=== PATIENT | female | born 1985 | race Caucasian/White ===

== ENCOUNTER 2019-02-04 09:59 | Emergency (ER) | payer MEDICAID ==
[~2019-02-04] VITALS: Ht 175.3 cm; Wt 90.0 kg
[2019-02-04 10:10] VITALS: BP 97/59
== END 2019-02-04 11:05 | disposition home or self-care (01) ==
LOC: ED 10:53
DX: T78.49XA Other allergy, initial encounter (principal); B37.9 Candidiasis, unspecified; F17.200 Nicotine dependence, unspecified, uncomplicated; X58.XXXA Exposure to other specified factors, initial encounter
CPT/HCPCS: 82962; 99283; J7512; Q0163

== ENCOUNTER 2020-09-23 06:46 | Day surgery (SDC) | payer MEDICAID ==
[~2020-09-23] VITALS: Ht 170.2 cm; Wt 82.9 kg
[2020-09-23 07:29] VITALS: BP 97/65
[2020-09-23] MEDS ORDERED: PROC10TA2 PO (07:35)
[2020-09-23] MEDS ORDERED: ONDA4TAB7 PO (07:35)
[2020-09-23] MEDS ORDERED: GUAI5LIQ9 PO (07:35)
[2020-09-23] MEDS ORDERED: DEXA4TAB PO (07:35)
[2020-09-23] MEDS ORDERED: CEFAZOLIN PMX 1GM/50ML 50 ML ONE (07:37)
[2020-09-23] MEDS ORDERED: CEFAZOLIN PMX 1GM/50ML 50 ML IV ONE (08:00)
[2020-09-23] MEDS ORDERED: SODIUM CHLORIDE 0.9% 1,000 ML IV SCH (08:00)
[2020-09-23] MEDS ORDERED: LIDOCAINE 1%, 10ML ONE (08:08)
[2020-09-23] MEDS ORDERED: LIDOCAINE 1%, 20ML ONE (08:08)
[2020-09-23] MEDS ORDERED: MIDAZOLAM 1 MG/ML, 5ML ONE ×2 (08:20)
[2020-09-23] MEDS ORDERED: FLUMAZENIL 0.1 MG/1 ML, 5ML ONE (08:21)
[2020-09-23] MEDS ORDERED: NALOXONE 1 MG/ML, 2ML ONE (08:21)
[2020-09-23] MEDS ORDERED: FENTANYL PF 100 MCG/2ML ONE (08:21)
== END 2020-09-23 10:35 | disposition other institution (70) ==
LOC: OUT 06:46
PROVIDERS: ATTEND Internal Medicine Hematology & Oncology
DX: C50.012 Malignant neoplasm of nipple and areola, left female breast (principal); C79.51 Secondary malignant neoplasm of bone; C78.00 Secondary malignant neoplasm of unspecified lung; Z17.1 Estrogen receptor negative status [ER-]; Z87.891 Personal history of nicotine dependence; Z80.3 Family history of malignant neoplasm of breast
CPT/HCPCS: 36561; 76937; 77001; 99156; 99157; C1788; C1894; J0690; J1642; J2250; J3010; J7030; J2310

== ENCOUNTER 2020-09-23 10:40 | Inpatient (IN) | payer MEDICAID ==
[~2020-09-23] VITALS: Ht 170.2 cm; Wt 82.6 kg
[~2020-09-23 10:40] MED LIST: DEXA4TAB PO; GUAI5LIQ9 PO; ONDA4TAB7 PO; PROC10TA2 PO
--- NOTE | 2020-09-23 10:40 | NUR ---
pt LIBBY bush from [facility] post porcedure for increasing SOB and resp. distress. pt was recently dx about 1 month ago with lung and breast cancer and initiated chemo yesterday. per report from Tatyana GARCIA, pt had a port placed to R chest today and after procedure had had significantly increased O2 needs. per report, pt is on 4L NC at her baseline for the last couple of weeks, but pt is now up to 10L via simple mask. pt is in tripod position and is in obvious resp. distress denies CP, speaking 3-4 word sentences, states that it hurts in her back when she coughs SO at bedside
--- NOTE | 2020-09-23 10:52 | NUR ---
Dr Cadena has been to bedside for eval
[2020-09-23] MEDS ORDERED: ALBUTEROL/IPRATROPIUM 2.5MG/0.5MG, 3 ML ONE (10:53)
[2020-09-23] MEDS ORDERED: SODIUM CHLORIDE FLUSH 10ML SYR IVF ONE (11:00)
[2020-09-23] MEDS ORDERED: ALBUTEROL/IPRATROPIUM 2.5MG/0.5MG, 3 ML NPPB ONE (11:00)
--- NOTE | 2020-09-23 11:01 | NUR ---
breathing tx initiated. CXR at bedside
--- NOTE | 2020-09-23 11:07 | NUR ---
EKG at bedside
--- NOTE | 2020-09-23 11:12 | NUR ---
breathing tx completed. pt now coughing profusely attempted to wean O2 after treatment, pt O2 sat down to 75% pt placcefd on 15L NRB lab at bedside to draw
--- NOTE | 2020-09-23 11:19 | NUR ---
post breathing tx, pt lung sounds still coarse thought and pt tachypneic. pt reports that she is getting tired lots of coughing, non-productive unless the pt coughs so hard that she has to spit
--- NOTE | 2020-09-23 11:20 | NUR ---
pt continues to be in tripod position with pursed lip breathing
[2020-09-23 11:24] LABS: BASOPHILS % (AUTO) 1 % (0-1); EOSINOPHILS % (AUTO) 1 % (1-7); LYMPHOCYTES % (AUTO) 8 % (22-44); MEAN CORPUSCULAR HEMOGLOBIN 28.6 pg (27.0-34.8); MEAN CORPUSCULAR HGB CONC 33.3 g/dL (32.4-35.8); MEAN PLATELET VOLUME 7.9 fL (7.4-10.4); MONOCYTES % (AUTO) 2 % (2-9); NEUTROPHILS % (AUTO) 88 % (42-75); PLATELET COUNT 218 x10^3/uL (130-400); RED BLOOD COUNT 5.38 x10^6/uL (3.82-5.3); RED CELL DISTRIBUTION WIDTH 16.1 % (9.6-15.2)
[2020-09-23] MEDS ORDERED: CEFTRIAXONE PMX 2GM/50ML 50 ML IVPB ONE (11:30)
--- NOTE | 2020-09-23 11:35 | NUR ---
pt moved from room 28 to T4 for intubation report to Jill GARCIA
--- NOTE | 2020-09-23 11:36 | NUR ---
ASSUMING CARE OF PT AT THIS TIME. PT ABLE TO SCOOT SELF ONTO WEIGHTED GURNEY. RESP IN ROOM SETTING UP OPTIFLOW TO TRIAL PT BEFORE INTUBATION.
--- NOTE | 2020-09-23 11:39 | NUR ---
OPTIFLOW STARTED AT 80% 40L.
[2020-09-23 11:40] LABS: ALBUMIN 2.7 g/dL (3.4-5.0); ANION GAP 5 mmol/L (5-15); CALCIUM 7.8 mg/dL (8.5-10.1); CHLORIDE 104 mmol/L (98-107)
[2020-09-23 11:46] LABS: ALANINE AMINOTRANSFERASE 24 U/L (12-78); ALKALINE PHOSPHATASE 77 U/L (45-117); BILIRUBIN,TOTAL 0.5 mg/dL (0.2-1.0); CREATININE 0.75 mg/dL (0.55-1.02); MD SCAN; TOTAL PROTEIN 6.9 g/dL (6.4-8.2); TROPONIN I < 0.015 ng/mL (0.000-0.045)
--- NOTE | 2020-09-23 11:55 | NUR ---
2ND PIV STARTED, 1 SET OF BLOOD CULTURES DRAWN. LAB AT BEDSIDE FOR 2ND SET.
[2020-09-23] MEDS ORDERED: CEFTRIAXONE PMX 2GM/50ML 50 ML ONE (11:56)
--- NOTE | 2020-09-23 12:00 | NUR ---
PT PROVIDED W/ WATER, OK PER . TOLERATED WELL.
[2020-09-23 12:08] LABS: FIO2 85 %
--- NOTE | 2020-09-23 12:16 | NUR ---
DANIELLE MADERA RT OK TO TAKE PT OFF OF OPTIFLOW AND SWITCH TO 15L NON REBREATHER FOR CTA.
--- NOTE | 2020-09-23 12:18 | NUR ---
PT SWITCHED TO 15 NON REBREATHER AND TAKEN TO CT AT THIS TIME.
[2020-09-23] MEDS ORDERED: OMNIPAQUE 350 MG/ML, 75ML BOTTLE ONE (12:38)
--- NOTE | 2020-09-23 12:42 | NUR ---
PT RETURNED TO ROOM W/O INCIDNET. RESTING ON GURNEY W/ SIDE RAILS UPX2 AND FAMILY AT BEDSIDE. TACHYPNEIC AND TACHYCARDIC, OTHER VS WDL. AWAITING CT READ.
--- NOTE | 2020-09-23 12:54 | NUR ---
ALL TESTS RESULTED. PT IS UP FOR RECHECK AT THIS TIME.
--- NOTE | 2020-09-23 13:01 | NUR ---
REPORT FROM RADHA FRAGOSO. PT SITTING UP IN [facility] W LABORED, RAPID RESPIRATIONS. ON OPTIFLOW, SPO2 93%. FREQUENT PRODUCTIVE COUGH NOTED. PT REPORTS FEELING MUCH BETTER THAN UPON ARRIVAL TO ED. SPEAKING IN 5 WORD SENTENCES. DIAGNOSTICS RESULTED, CHART UP FOR RECHECK.
[2020-09-23] MEDS ORDERED: SODIUM CHLORIDE FLUSH 10ML SYR IVF PRN (13:30)
--- NOTE | 2020-09-23 13:34 | NUR ---
PT CONTINUES TO DENY NEEDS. REPORTS IMPROVED WOB ON HIGH FLOW NC. SPO2 >90%.
[2020-09-23] MEDS ORDERED: BISACODYL 10 MG SUPP PR PRN (14:00)
[2020-09-23] MEDS ORDERED: POLYETHYLENE GLYCOL 17 GM PACKET PO PRN (14:00)
[2020-09-23] MEDS ORDERED: ENALAPRILAT 1.25 MG/ML, 2ML IVPush PRN (14:00)
[2020-09-23] MEDS ORDERED: DOCUSATE 100 MG CAPSULE PO PRN (14:00)
[2020-09-23] MEDS ORDERED: ONDANSETRON 2MG/ML, 2ML IVPush PRN (14:00)
[2020-09-23] MEDS ORDERED: LABETALOL 5MG/ML, 20ML IVPush PRN (14:00)
[2020-09-23] MEDS ORDERED: ACETAMINOPHEN 325 MG TABLET PO PRN (14:00)
[2020-09-23] MEDS ORDERED: LORazepam 2 MG/ML, 1ML IVPush PRN (14:00)
--- NOTE | 2020-09-23 14:29 | NUR ---
REPORT TO RADHA EARL IN CCU. PT PREPARED FOR TRANSPORT.
[2020-09-23] MEDS ORDERED: POTASSIUM CHLORIDE 20 MEQ TAB.ER.PRT PO ONE (14:30)
[2020-09-23] MEDS ORDERED: FUROSEMIDE 40 MG/4 ML IV ONE (14:30)
[2020-09-23] MEDS ORDERED: ALBUTEROL HFA 90 MCG/SPRAY INH PRN (15:00)
[2020-09-23] MEDS: ENOXAPARIN 40 MG/0.4 ML SQ SCH (15:10)
[2020-09-23] MEDS: AZITHROMYCIN 500 MG in SODIUM CHLORIDE 0.9% 250 ML IV SCH (15:21)
[2020-09-23 15:38] VITALS: BP 104/67
[2020-09-23] MEDS: OXYcodone IR 5MG TABLET PO PRN (18:15)
[2020-09-24] MEDS: OXYcodone IR 5MG TABLET PO PRN (01:56)
[2020-09-24 04:00] VITALS: BP 92/55
[2020-09-24 04:04] LABS: BASOPHILS % (AUTO) 0 % (0-1); EOSINOPHILS % (AUTO) 4 % (1-7); LYMPHOCYTES % (AUTO) 8 % (22-44); MEAN CORPUSCULAR HEMOGLOBIN 28.7 pg (27.0-34.8); MEAN CORPUSCULAR HGB CONC 33.6 g/dL (32.4-35.8); MEAN PLATELET VOLUME 8.2 fL (7.4-10.4); MONOCYTES % (AUTO) 2 % (2-9); NEUTROPHILS % (AUTO) 86 % (42-75); PLATELET COUNT 194 x10^3/uL (130-400); RED BLOOD COUNT 5.12 x10^6/uL (3.82-5.3); RED CELL DISTRIBUTION WIDTH 15.5 % (9.6-15.2)
[2020-09-24 04:05] LABS: MD NO
[2020-09-24 04:17] LABS: ALBUMIN 2.4 g/dL (3.4-5.0); ANION GAP 5 mmol/L (5-15); CALCIUM 7.8 mg/dL (8.5-10.1); CHLORIDE 104 mmol/L (98-107)
[2020-09-24 04:19] LABS: ALANINE AMINOTRANSFERASE 17 U/L (12-78); ALKALINE PHOSPHATASE 71 U/L (45-117); CREATININE 0.47 mg/dL (0.55-1.02); TOTAL PROTEIN 6.4 g/dL (6.4-8.2)
[2020-09-24] MEDS ORDERED: POTASSIUM CHLORIDE 20 MEQ TAB.ER.PRT PO ONE (07:00)
[2020-09-24] MEDS ORDERED: FUROSEMIDE 40 MG/4 ML IV ONE (07:30)
[2020-09-24] MEDS: SENNA/DOCUSATE TABLET PO SCH (07:51)
[2020-09-24] MEDS: CEFTRIAXONE PMX 2GM/50ML 50 ML IVPB SCH (11:25)
[2020-09-24] MEDS ORDERED: ALBUMIN HUMAN 25% 100 ML IV ONE ×2 (12:00)
[2020-09-24 14:36] VITALS: BP 95/62
[2020-09-24] MEDS: ENOXAPARIN 40 MG/0.4 ML SQ SCH (15:00)
[2020-09-24] MEDS: AZITHROMYCIN 500 MG in SODIUM CHLORIDE 0.9% 250 ML IV SCH (15:00)
[2020-09-24] MEDS ORDERED: MELATONIN 5 MG TABLET PO PRN (21:30)
[2020-09-25] MEDS: OXYcodone IR 5MG TABLET PO PRN (03:53)
[2020-09-25 04:00] VITALS: BP 103/55
[2020-09-25 04:56] LABS: ANION GAP 8 mmol/L (5-15); CALCIUM 8.4 mg/dL (8.5-10.1); CHLORIDE 98 mmol/L (98-107); CREATININE 0.36 mg/dL (0.55-1.02)
[2020-09-25] MEDS ORDERED: POTASSIUM CHLORIDE 20 MEQ TAB.ER.PRT PO SCH (08:00)
[2020-09-25] MEDS ORDERED: LEVO750T6 PO (08:53)
[2020-09-25] MEDS: SENNA/DOCUSATE TABLET PO SCH (09:00)
[2020-09-25] MEDS: CEFTRIAXONE PMX 2GM/50ML 50 ML IVPB SCH (11:23)
== END 2020-09-25 11:50 | disposition home or self-care (01) | DRG 193 ==
LOC: ED 13:29 → EDIP 13:56 → CCU 14:38 → DCLOUNGE 09-25 11:38
PROVIDERS: ADMIT Internal Medicine; ATTEND Internal Medicine
PROC: 5A0935A Assistance with Respiratory Ventilation, Less than 24 Consecutive Hours, High Flow/Velocity Cannula (ICD-10-PCS; principal; 2020-09-23)
PROC: 5A0935A Assistance with Respiratory Ventilation, Less than 24 Consecutive Hours, High Flow/Velocity Cannula (ICD-10-PCS; 2020-09-24)
DX: J18.9 Pneumonia, unspecified organism (principal); J96.01 Acute respiratory failure with hypoxia; J81.0 Acute pulmonary edema; C78.00 Secondary malignant neoplasm of unspecified lung; C79.51 Secondary malignant neoplasm of bone; Z20.822 Contact with and (suspected) exposure to COVID-19; C50.919 Malignant neoplasm of unspecified site of unspecified female breast; E66.9 Obesity, unspecified; Z68.28 Body mass index [BMI] 28.0-28.9, adult; F41.9 Anxiety disorder, unspecified; E87.6 Hypokalemia; E88.09 Other disorders of plasma-protein metabolism, not elsewhere classified; Z15.01 Genetic susceptibility to malignant neoplasm of breast; Z87.891 Personal history of nicotine dependence; Z92.21 Personal history of antineoplastic chemotherapy
CPT/HCPCS: 36415; 36600; 71045; 71275; 80048; 80053; 82803; 83605; 83735; 84100; 84145; 84484; 85025; 87040; 87081; 87635; 93005; 96365; G0378; J0456; J0696; J1650; J1940; P9047; Q9967; J7050